=== PATIENT | male | born 1960 | race Caucasian/White ===

== ENCOUNTER → 2018-10-16 | Outpatient (CLI) | payer BC ==
[~2018-10-16] MED LIST: BENZOCAINE ONE 20% MUCOSAL SPRAY.; IV NORMAL SALINE 500ML BAG 500 ML ONE; MIDAZOLAM HCL/PF 2 MG/2 ML VIAL. ONE; fentaNYL PF VIAL 100 MCG/2 ML VIAL ONE
--- NOTE | 2018-10-16 12:28 | PCVCIMAG ---
APPROVED REPORT Study performed: 10/16/2018 09:02:43 EXAM: Transesophageal Echocardiogram Patient Location: [facility] Room #: 1 Status: routine BSA: 2.13 HR: 104 bpmBP: 163/105 mmHg Rhythm: Atrial Flutter Other Information Study Quality: Good Indications Atrial Fibrillation Possible thrombus in the left atrial appendage by CT Echo Enhancing Agent Indication: Rule out Shunt Agent(s) / Amount(s) Used: Agitated Saline 10 cc Procedure After obtaining informed consent, patient underwent transesophageal echo in the [employer]. Type of Sedation : Conscious Sedation Sedation was administered by Lurdes Moore RN. Sedation start time: 09:38 Case end Time: 09:50 Sedation was achieved intravenously with: Versed (4 mg) Fentanyl (100 mcg) Transesophageal probe was inserted and advanced into esophagus without difficulty by Saji Ya MD. Echo enhancement indication: R/O Septal defect. Echo enhancement agent administered: Agitated Saline The KHALIDA was performed without complications. Throughout the procedure, the blood pressure, pulse oximetry, cardiac rhythm, and rate were monitored. The patient tolerated the procedure without adverse effects. Recovery from conscious sedation was uneventful and vital signs were stable. Left Ventricle The left ventricle is normal size. There is normal left ventricular wall thickness. Left ventricular systolic function is moderately decreased. Right Ventricle The right ventricle is normal size. The right ventricular systolic function is normal. Atria Thrombus is present in the left atrial appendage. Left atrium is severely dilated. No shunting by contrast bubble injection Right atrium is severely dilated. Aortic Valve Aortic valve is mildly sclerotic Trace to mild aortic regurgitation. There is no aortic valvular stenosis. Mitral Valve The mitral valve is normal in structure. Mild mitral regurgitation. No evidence of mitral valve stenosis. Tricuspid Valve The tricuspid valve is normal in structure. Trace tricuspid regurgitation. Pulmonic Valve The pulmonary valve is normal in structure. There is no pulmonic valvular regurgitation. Great Vessels The aortic root is normal in size. The ascending aorta is normal in size. Aortic arch is normal in caliber. IVC is normal in size and collapses >50% with inspiration. The pulmonary artery is normal. Pericardium There is no pericardial effusion. <Conclusion> Left ventricular systolic function is moderately to severely decreased. Thrombus is present in the left atrial appendage. Both atria are severely dilated. No shunting by contrast bubble injection Aortic valve is mildly sclerotic, no stenosis. Trace to mild aortic regurgitation. The mitral valve is normal in structure. Mild mitral regurgitation. There is no pericardial effusion.
== END ==
LOC: PCVCINTER 09:33
PROVIDERS: ATTEND Internal Medicine Cardiovascular Disease
DX: I08.3 Combined rheumatic disorders of mitral, aortic and tricuspid valves (principal)
CPT/HCPCS: 93312; 93325; J2250; J3010; J7040; 99152

== ENCOUNTER → 2018-12-03 | Outpatient (CLI) | payer BC ==
--- NOTE | 2018-12-03 13:09 | PCVCIMAG ---
APPROVED REPORT Study performed: 12/03/2018 09:10:26 EXAM: Transesophageal Echocardiogram Patient Location: [facility] Status: routine BSA: 2.13 HR: 112 bpmBP: 149/101 mmHg Rhythm: Atrial Fibrillation Other Information Study Quality: Good Indications Atrial Fibrillation Echo Enhancing Agent Indication: Rule Out Septal Defect Agent(s) / Amount(s) Used: Agitated Saline cc Procedure After obtaining informed consent, patient underwent transesophageal echo in the [employer]. Type of Sedation : Conscious Sedation Sedation was achieved intravenously with: Versed (4mg) Fentanyl (100 mcg) Transesophageal probe was inserted and advanced into esophagus without difficulty by Saji Ya MD. The KHALIDA was performed without complications. Throughout the procedure, the blood pressure, pulse oximetry, cardiac rhythm, and rate were monitored. The patient tolerated the procedure without adverse effects. Recovery from conscious sedation was uneventful and vital signs were stable. Left Ventricle The left ventricle is normal size. There is normal left ventricular wall thickness. Left ventricular ejection fraction is moderate to severely decreased. LVEF is 30-35%. Right Ventricle The right ventricle is normal size. The right ventricular systolic function is normal. Atria Left atrium is severely dilated. No thrombus is visualized in the left atrium or appendage. Prominent pectinante muscles. Small amount of spontaneous contrast in the appendage. No shunting by contrast bubble injection. Right atrium is severely dilated. Aortic Valve The aortic valve is trileaflet, mildly sclerotic Mild aortic regurgitation There is no aortic valvular stenosis. Mitral Valve The mitral valve is normal in structure. Mild mitral regurgitation. No evidence of mitral valve stenosis. Tricuspid Valve The tricuspid valve is normal in structure. There is no tricuspid valve regurgitation noted. Pulmonic Valve The pulmonary valve is normal in structure. There is no pulmonic valvular regurgitation. Great Vessels The aortic root is normal in size. The ascending aorta is normal in size. IVC is normal in size and collapses >50% with inspiration. Pericardium There is no pericardial effusion. <Conclusion> Left ventricular ejection fraction is moderate to severely decreased. LVEF is 30-35%. Both atria are dilated. No thrombus is visualized in the left atrium or appendage. Prominent pectinante muscles. Small amount of spontaneous contrast in the appendage. No shunting by contrast bubble injection. The aortic valve is trileaflet, mildly sclerotic. Mild aortic regurgitation, no stenosis The mitral valve is normal in structure. Mild mitral regurgitation. There is no pericardial effusion.
== END | disposition home or self-care (01) ==
LOC: PCVCIMAG 13:00
PROVIDERS: ATTEND Internal Medicine
DX: I08.0 Rheumatic disorders of both mitral and aortic valves (principal); I48.91 Unspecified atrial fibrillation
CPT/HCPCS: 93312; 93325; J2250; J3010; J7040

== ENCOUNTER → 2018-12-20 | Outpatient (CLI) | payer BC ==
[~2018-12-20] MED LIST changes: -BENZOCAINE ONE 20% MUCOSAL SPRAY.; -IV NORMAL SALINE 500ML BAG 500 ML ONE; -MIDAZOLAM HCL/PF 2 MG/2 ML VIAL. ONE; +REGADENOSON 0.4 MG/5 ML DISP.SYRIN. IV ONE; -fentaNYL PF VIAL 100 MCG/2 ML VIAL ONE
--- NOTE | 2018-12-20 15:54 | PCVCIMAG ---
APPROVED REPORT Imaging Protocol: Rest Tc-99m/Stress Tc-99m 1 day Study performed: 12/20/2018 12:19:11 Indication: Atrial Fibrillation, Chest pain, Cardiomyopathy, Hx Ablation Patient Location: Out-Patient Stress Nurse: Monse Ashley RN, Marli Quinn RN RI Tech:DEAN Carrasquillo Ht: 5 ft 10 in Wt: 205 lbs BSA: 2.11 m2 HR: 90 bpm BP: 145/100 mmHg BMI: 29.41 Rhythm: Atrial Flutter Medical History Medical History: CAD Medications: Amiodarone, ASA, Pradaxa, Losartan, Metoprolol, Pravastatin Allergies: Atorvastatin Cardiac Risk Factors: Age Pretest Chest Pain Characteristics: No chest pain Exercise History: Physically active Resting Data Rest SPECT myocardial perfusion imaging was performed in supine position 10.7 minutes following the intravenous injection of 10.7 mCi of Tc-99m Sestamibi. Time of rest injection: 1145 Date: 12/20/2018 Administration Route: IV Administration Site: Right AC Pharmacologic Stress Pharmacologic stress test was performed by injecting Regadenoson 0.4 mg IV push over 10-15 seconds immediately followed by the intravenous injection of 33.2 mCi of Tc-99m Sestamibi. Time of stress injection: 1300 Date: 12/20/2018 Administration Route: IV Administration Site: Right AC Gated Stress SPECT was performed 45 minutes after stress injection. The images were gated to evaluate regional wall motion and calculate left ventricular ejection fraction. Stress Test Details Stress Test: Pharmacologic stress testing performed using 0.4 mg of regadenoson per 5 mL given IV over 10 seconds. Reason for pharmacologic stress test: A Flutter. HRMax Heart Rate (APMHR): 163 bpm Resting HR: 90 bpmTarget HR (85% APMHR): 138 bpm Max HR Achieved: 102 bpm % of APMHR: 62 Recovery HR: 88 bpm BP Resting BP: 145/100 mmHg Max BP: 151/102 mmHg Recovery BP: 163/90 mmHg ECG Resting ECG: Atrial Flutter, NSIVCD Stress ECG: Atrial Flutter, NSIVCD ST Change: Non-ischemic Recovery ECG: Atrial Flutter Clinical Reason for Termination: Completed protocol Stress Symptoms: Dyspnea, Lightheaded Exercise duration: 0 min 55 sec Symptoms resolved during recovery. Study Quality Study: Good Study Data Post stress, the left ventricular ejection was 33%.. SSS: 1 SRS: 7 SDS: 0 TID = 1.07. Perfusion There is a medium area of moderately reduced uptake in the apical segment of the inferior wall which is seen on the stress images as well as the resting images. This area is hypokinetic and is most consistent with myocardial scar. Wall Motion Moderately severe decreased left ventricular systolic function. Nuclear Conclusion ECG Findings: negative for ischemia Clinical Findings: non-diagnostic Nuclear Findings: positive for infarct Exercise Capacity: not assessed Left Ventricular Function: abnormal This study reveals a fixed defect in the inferoapical segment, consistent with infarct. This study is of low probability for inducible ischemia. There is moderately severe LV dysfunction, EF of 33%.
== END | disposition home or self-care (01) ==
LOC: PCVCIMAG 10:49
PROVIDERS: ATTEND Internal Medicine Cardiovascular Disease
DX: I48.91 Unspecified atrial fibrillation (principal); I42.9 Cardiomyopathy, unspecified
CPT/HCPCS: 78452; 93017; A9500; J2785